=== PATIENT | female | born 1965 | race African-American/Black ===

== ENCOUNTER 2017-12-22 09:08 | Outpatient (CLI) | payer OTHER ==
[2017-12-22 09:56] LABS: Anion Gap 13 mmol/L (10-20); BUN (Urea Nitrogen) 15 mg/dL (9.8-20.1); Calc. Creatinine Clearance 0 mL/min (70-130); Calcium 9.3 mg/dL (7.8-10.44); Carbon Dioxide 27 mmol/L (22-29); Chloride 105 mmol/L (98-107); Estimated GFR-MDRD 83; Glucose 181 mg/dL (70-105); Potassium 3.8 mmol/L (3.5-5.1); Sodium 141 mmol/L (136-145)
--- NOTE | 2017-12-22 12:08 | ULT ---
RENAL SONOGRAM: History: Neurogenic bladder. FINDINGS: Right kidney is 8.2 cm and the left is 10.7 cm. Each has a normal appearance without evidence of mass , stone, or hydronephrosis. Urinary bladder shows a somewhat thickened wall. Volume measured at 115 c c. IMPRESSION: 1. Moderate amount of urine within bladder. 2. No evidence of upper urinary tract obstruction. POS: [facility]
== END 2017-12-22 09:09 | disposition home or self-care (01) ==
LOC: SCSULT 09:08
PROVIDERS: ATTEND Urology
DX: N31.9 Neuromuscular dysfunction of bladder, unspecified (principal); R39.14 Feeling of incomplete bladder emptying
CPT/HCPCS: 36415; 76770; 80048